=== PATIENT | female | born 1935 | race Caucasian/White ===

== ENCOUNTER 2020-08-07 20:53 | Emergency (ER) | payer BC, MEDICARE ==
[~2020-08-07] VITALS: Ht 172.7 cm; Wt 49.9 kg
[~2020-08-07 20:53] MED LIST: ASPI-992 PO; ATOR20TA PO; ESCI10TA PO; MEMA5TAB PO; METO25TA6 PO; RIVA1.5C3 PO
--- NOTE | 2020-08-07 20:58 | NUR ---
PATIENT CAME TO ER BED 6 BIBRA C/O SOBREPORTEDLY IN THE 60s BY RA, AND ALSO GCS OF 9. PATIENT IS ON NONREBREATHER MASK 15L AT 78%O2 SATURATION. PATIENT IS AAOX1. PATIENT IS HAVING DIFFICULTY OF TALKING. ALSO ADMITS TO HAVING CHEST PAIN. PATIENT IS BREATHING W/ EVEN RISE AND FALL OF CHEST. PATIENT IS CONNECTED TO THE DRUPAL PHP DEVELOPER.
[2020-08-07] MEDS ORDERED: DILTIAZEM HCL 25 MG IV ONE (20:59)
[2020-08-07] MEDS ORDERED: SODIUM BICARBONATE SYR 50 MEQ/50 ML DISP.SYRIN IV ONE (20:59)
[2020-08-07] MEDS ORDERED: EPINEPHRINE (1:10,000) SYRINGE 1 MG/10 ML DISP.SYRIN IVP ONE (20:59)
[2020-08-07] MEDS ORDERED: CALCIUM CHLORIDE 1,000 MG/10 ML DISP.SYRIN IV ONE (20:59)
[2020-08-07] MEDS ORDERED: IV NS 0.9% 1,000 ML BAG IV ONE ×2 (21:00→23:00)
[2020-08-07] MEDS ORDERED: DILTIAZEM HCL 25 MG IV IV ONE (21:00)
--- NOTE | 2020-08-07 21:02 | NUR ---
PATIENT IS NOTED TO HAVE HIGH HEART RATE AT 212 ATRIAL FIBRILLATION W/ RAPID VENTRICULAR RATE. MD AT BEDSIDE.
--- NOTE | 2020-08-07 21:07 | NUR ---
MD RUCKER ON PHONE WITH [facility].
--- NOTE | 2020-08-07 21:08 | NUR ---
RT AT BEDSIDE FOR ABG.
--- NOTE | 2020-08-07 21:11 | NUR ---
MARY DAMON, ECG TECHNICIAN RECOMMENDS TO GIVE CARDIOVERSION TO PATIENT.
[2020-08-07 21:15] VITALS: BP 144/61
[2020-08-07] MEDS: AMIODARONE 150 MG/3 ML VIAL IV ONE ×2 (21:15→21:30)
[2020-08-07] MEDS ORDERED: ETOMIDATE 2 MG/ML VIAL ONE (21:16)
--- NOTE | 2020-08-07 21:16 | NUR ---
HARRY (CAREGIVER) [phone] [place] ([place] ONLY FAMILY, LIVES OUT OF TOWN)[phone]
--- NOTE | 2020-08-07 21:20 | NUR ---
MD, RT, EMT, AND NURSING STAFF AT BEDSIDE READY FOR CARDIOVERSION.
--- NOTE | 2020-08-07 21:23 | NUR ---
ETOMIDATE 15MG ADMINISTERED PER MD'S ORDER. SYNCHRONIZED CARDIOVERSION OF 100J
--- NOTE | 2020-08-07 21:24 | NUR ---
CARDIOVERSION SYNC 200J HR STILL AT 160s
[2020-08-07] MEDS ORDERED: AMIODARONE 150 MG/3 ML VIAL IV ONE (21:27)
--- NOTE | 2020-08-07 21:29 | NUR ---
PATIENT NOTED TO VOMIT COFFEEGROUND EMESIS. AIRWAY IS MAINTAINED THROUGH CONSTANT SUCTIONING. OXYGEN IS DESATURATING. MD ORDER FOR INTUBATION.
--- NOTE | 2020-08-07 21:35 | NUR ---
PATIENT IS INTUBATED W/ 24CM AT THE LIP W/ 7.5 TRACH TUBING. VENT SETTINGS ON 24 ASSIST CONTROL, 450 TIDAL VOLUME, 0 PEEP, AND 100% FIO2.
--- NOTE | 2020-08-07 21:37 | NUR ---
PATIENT'S PULSE IS UNABLE TO BE PALPATED. CPR IS INITIATED.
--- NOTE | 2020-08-07 21:38 | NUR ---
1MG OF EPINEPHRINE ADMINISTERED PER MD'S ORDER.
--- NOTE | 2020-08-07 21:40 | NUR ---
PATIENT'S PULSE IS NOT PALPABLE, CPR IS RESUMED. CALCIUM BICARBONATE IS ADMINISTERED PER MD'S ORDER.
--- NOTE | 2020-08-07 21:42 | NUR ---
PATIENT IN PEA , NO PULSE FELT.
--- NOTE | 2020-08-07 21:42 | NUR ---
PATIENT IS ADMIINSTEERED EPINEPHRINE PER MD'S ORDER.
--- NOTE | 2020-08-07 21:44 | NUR ---
PULSE IS PALPABLE. CPR IS HALTED.
[2020-08-07] MEDS ORDERED: NOREPINEPHRINE 4 MG/4 ML AMPUL IV ONE (22:04)
[2020-08-07 22:06] LABS: ABG BASE EXCESS -10.4 mmol/L; ABG OXYGEN SATURATION 96.7 % (92.0-98.5); ABG PCO2 23.6 mmHg (35.0-45.0); ABG PH 7.355 (7.350-7.450); ABG PO2 90.6 mmHg (75.0-100.0); AaDO2 598.8 mmHg; COHb 0.5 % (0.5-1.5); MetHb 0.2 % (0.0-1.5); SITE, ABG Right Radial; VENT MODE, BG 15L NRB
--- NOTE | 2020-08-07 22:07 | NUR ---
Pt was intubated and placed on mech vent with noted settings post code. ETT 7.5 @ 26cm lip patent and secure via anchor fast. Positive co2 color change. Bilateral breath sounds noted with positive chest rise/fall. Waiting for Xray to confirm placement. Mech vent to red outlet. Alarms set and audible. Addendum: 08/07/20 at 2211 by LAM CEDEÑO RT Amended: Links added.
--- NOTE | 2020-08-07 22:09 | NUR ---
AT BEDSIDE FOR CENTRAL LINE PLACEMENT AT LEFT FEMORAL SITE.
--- NOTE | 2020-08-07 22:37 | NUR ---
DR. RUCKER SPEAKING WITH CAREGIVER REGARDING PLAN OF CARE
[2020-08-07 22:39] LABS: BASOPHILS # (AUTO) 0.1 /CMM (0.0-0.2); BASOPHILS % (AUTO) 0.5 % (0.0-2.0); EOSINOPHILS % (AUTO) 0.3 % (0.0-6.0); HEMATOCRIT 39 % (33-45); LYMPHOCYTES # (AUTO) 1.4 /CMM (0.8-4.8); LYMPHOCYTES % (AUTO) 9.7 % (20.0-44.0); MEAN CORPUSCULAR HGB CONC 31 g/dl (31.0-36.0); MEAN CORPUSCULAR VOLUME 99 fL (82-100); MONOCYTES # (AUTO) 0.2 /CMM (0.1-1.30); MONOCYTES % (AUTO) 1.1 % (2.0-12.0); NEUTROPHILS # (AUTO) 12.9 /CMM (1.8-8.9); NEUTROPHILS % (AUTO) 88.4 % (43.0-81.0); PLATELET COUNT (AUTO) 321 /CMM (150-450); RED BLOOD CELL COUNT(AUTO) 3.96 MIL/uL (4.0-5.2); WHITE BLOOD COUNT (AUTO) 14.6 K/uL (4.3-11.0)
--- NOTE | 2020-08-07 23:02 | NUR ---
PATIENT'S PULSE IS NON-PALPABLE. MD NOTIFIED. MD. RUCKER AND MD MEJIA AT BEDSIDE.
--- NOTE | 2020-08-07 23:02 | NUR ---
CPR IS INTIATED.
--- NOTE | 2020-08-07 23:04 | NUR ---
SODIUM BICARB IV PUSH PER MD'S ORDER.
--- NOTE | 2020-08-07 23:05 | NUR ---
PULSE CHECK, PATIENT'S PULSE IS NON-PALABLE, CPR IS CONTINUED.
--- NOTE | 2020-08-07 23:07 | NUR ---
PULSE CHECK, EPI 1MG IS PUSHED DUE TO NO PALPABLE PULSE. CPR CONTINUED.
--- NOTE | 2020-08-07 23:09 | NUR ---
PATIENT PULSE CHECK, PULSE IS FELT.
--- NOTE | 2020-08-07 23:48 | NUR ---
PATIENT TAKEN TO CT.
[2020-08-07 23:50] LABS: CALCIUM, SERUM 11.5 mg/dL (8.5-10.1); CARBON DIOXIDE 15 mmol/L (21-32); CHLORIDE 99 mmol/L (98-107); CREATININE 3.4 mg/dL (0.6-1.3); GLUCOSE 319 mg/dL (74-106); POTASSIUM 4.3 mmol/L (3.5-5.1); SODIUM SERUM 138 mmol/L (136-145); UREA NITROGEN, BLOOD 52 mg/dL (7-18)
[2020-08-08 00:05] LABS: ALANINE AMINOTRANSFERASE 28 U/L (12-78); ALKALINE PHOSPHATASE 121 U/L (46-116); ASPARTATE AMINOTRANSFERASE 30 U/L (15-37); BILIRUBIN,DIRECT 0.1 mg/dL (0.0-0.2); BILIRUBIN,TOTAL 0.4 mg/dL (0.2-1.0); TOTAL PROTEIN, SERUM 5.3 g/dL (6.4-8.2)
--- NOTE | 2020-08-08 00:05 | NUR ---
RETURNED FROM CT.
[2020-08-08] MEDS ORDERED: DOPamine 400MG/D5W 250ML RTU 250 ML ONE (00:20)
[2020-08-08] MEDS ORDERED: AMLO-212 PO (00:25)
[2020-08-08] MEDS ORDERED: NOREPINEPHRINE 8 MG in IV NS 0.9% 242 ML IV PRN (00:30)
[2020-08-08] MEDS ORDERED: DOPamine 400 MG/D5W 250 ML RTU BAG IV PRN (00:30)
--- NOTE | 2020-08-08 01:14 | NUR ---
REPORT TO BERNARDO COOPER FOR IAN.
--- NOTE | 2020-08-08 01:16 | NUR ---
PATIENT IS NOTED TO HAVE NON-PALPABLE PULSE, MD MEJIA AT BEDSIDE. CPR IS INITIATED.
--- NOTE | 2020-08-08 01:19 | NUR ---
PULSE CHECK, PATIENT IS ASYSTOLE. NO PULSE IS PALPABLE. CPR IS CONTINUED.
[2020-08-08] MEDS ORDERED: SODIUM BICARBONATE SYR 50 MEQ/50 ML DISP.SYRIN ONE (01:21)
[2020-08-08] MEDS ORDERED: EPINEPHRINE (1:10,000) SYRINGE 1 MG/10 ML DISP.SYRIN ONE (01:21)
--- NOTE | 2020-08-08 01:22 | NUR ---
BICARB PUSHED PER MD'S ORDER. PULSE CHECK. PATIENT IS PULSELESS. CPR CONTINUED.
--- NOTE | 2020-08-08 01:23 | NUR ---
PATIENT IS GIVEN 1MG OF EPINEPHRINE PER MD'S ORDER. MD CHECKING CARDIAC MOVEMENT W/ ULTRASOUND. NO CARDIAC ACTIVITY.
--- NOTE | 2020-08-08 01:24 | NUR ---
PATIENT'S TIME OF , PER MD MEJIA.
[2020-08-08] MEDS ORDERED: ENOXAPARIN SODIUM 60 MG/0.6 ML DISP.SYRIN SQ SCH (01:30)
[2020-08-08] MEDS ORDERED: ONDANSETRON HCL/PF 4 MG/2 ML VIAL IVP PRN (01:30)
[2020-08-08] MEDS ORDERED: INSULIN REGULAR, HUMAN 100 UNIT/ML 3 ML VIAL SQ PRN (01:30)
[2020-08-08] MEDS ORDERED: ACETAMINOPHEN 650 MG/SUPP.RECT RC PRN (01:30)
[2020-08-08] MEDS ORDERED: MORPHINE SULFATE INJ 2 MG/ML DISP.SYRIN IV PRN (01:30)
[2020-08-08] MEDS ORDERED: PIPERACILLIN /TAZOBACTAM 2.25 G in IV D5W 50 ML IV SCH (01:30)
[2020-08-08] MEDS ORDERED: Z GUARD REMEDY 2 OZ OINT TP PRN (01:30)
[2020-08-08] MEDS ORDERED: IV NS 0.9% 1,000 ML IV PRN (01:30)
[2020-08-08] MEDS ORDERED: DEXTROSE 50%-WATER 50 ML DISP.SYRIN IV PRN (01:30)
--- NOTE | 2020-08-08 01:34 | NUR ---
SPO[facility]LE [facility]. PATIENT IS NOT A LEARNING AND DEVELOPMENT MANAGER'S CASE.
--- NOTE | 2020-08-08 01:40 | NUR ---
SPOKE WITH SHABNAM Ramos FROM [facility], PATIENT WILL NOT BE MOVING FORWARD WITH [facility]. REFERENCE # OF [id number]
--- NOTE | 2020-08-08 01:45 | NUR ---
PATIENT'S CORPSE IS TAKEN TO THE [place].
[2020-08-08] MEDS ORDERED: PIPERACILLIN /TAZOBACTAM 2.25 G in IV D5W 50 ML IV ONE (02:00)
[2020-08-08] MEDS ORDERED: VANCOMYCIN 1 GM in IV D5W 250ml IV ONE (02:00)
[2020-08-08] MEDS ORDERED: HYDROCORTISONE SOD SUCCINATE 100 MG/2 ML VIAL IV SCH ×2 (05:00)
[2020-08-08] MEDS ORDERED: BLOOD SUGAR DIAGNOSTIC 1 EACH STRIP IN SCH (06:00)
[2020-08-08] MEDS ORDERED: PANTOPRAZOLE 40 MG VIAL IV SCH (09:00)
== END 2020-08-08 01:24 | disposition expired ==
LOC: ER 20:58 → ICU 08-08 01:01 → UNDOADMIN 08-08 01:01 → ER 08-08 01:24
DX: I48.91 Unspecified atrial fibrillation (principal); R06.03 Acute respiratory distress; R00.1 Bradycardia, unspecified; F03.90 Unspecified dementia, unspecified severity, without behavioral disturbance, psychotic disturbance, mood disturbance, and anxiety; I11.9 Hypertensive heart disease without heart failure; Z85.3 Personal history of malignant neoplasm of breast
CPT/HCPCS: 31500; 36415 ×2; 36556; 36600; 70450; 71045 ×2; 71250; 74176; 80048; 80076; 83605 ×2; 83735; 84145; 84484; 85025; 85730; 87040 ×2; 87077; 87081; 87186; 87426; 92950 ×3; 92960; 93005 ×2; 96361; 96374; 96375; 99152; 99291; 99292; C9803; J0171 ×2; J0282; J1265; J1815; J3490 ×5; J7030; J7040; G0500; J2543; J3370; J7060